=== PATIENT | male | born 1990 | race Caucasian/White ===

== ENCOUNTER 2017-03-13 14:50 | Emergency (ER) | payer BC ==
[2017-03-13 14:56] VITALS: BP 131/77
--- NOTE | 2017-03-13 15:33 | UC ---
Ear Complaint HPI - HPI Summary HPI Summary: TWO MONTHS OF INTERMITTENT EAR PAIN R>L. WORSENING OVER LAST WEEK WITH RIGHT SIDED LYMPH NODE TENDERNESS. NO DRAINAGE. - History of Current Complaint Chief Complaint: UCEar Stated Complaint: RIGHT EAR PAIN Time Seen by Provider: 03/13/17 14:51 Hx Obtained From: Patient Onset/Duration: Gradual Onset, Lasting Weeks, Worse Since - ONE WEEK Severity Initially: Mild Severity Currently: Moderate Pain Intensity: 3 Pain Scale Used: 0-10 Numeric Associated Signs/Symptoms: Positive: URI Symptoms - Allergies/Home Medications Allergies/Adverse Reactions: Allergies Allergy/AdvReac Type Severity Reaction Status Date / Time No Known Allergies Allergy Verified 03/13/17 14:56 PMH/Surg Hx/FS Hx/Imm Hx Previously Healthy: Yes - Surgical History Surgical History: Yes Surgery Procedure, Year, and Place: Tonsilectomy - Social History Alcohol Use: Weekly Substance Use Type: None Smoking Status (MU): Light Every Day Tobacco Smoker Type: Smokeless Tobacco Amount Used/How Often: 4 chews daily Cessation Counseling: Patient Advised to Stop - Immunization History Most Recent Influenza Vaccination: no Review of Systems Constitutional: Negative Skin: Negative Eyes: Negative ENT: Ear Ache Respiratory: Negative Cardiovascular: Negative Gastrointestinal: Negative Genitourinary: Negative Motor: Negative Neurovascular: Negative Musculoskeletal: Negative Neurological: Negative Psychological: Negative Is Patient Immunocompromised?: No All Other Systems Reviewed And Are Negative: Yes Physical Exam Triage Information Reviewed: Yes Appearance: Well-Appearing, Well-Nourished, Pain Distress - MILD Vital Signs: Initial Vital Signs Temp 98.4 F 03/13/17 14:52 Pulse 85 03/13/17 14:52 Resp 16 03/13/17 14:52 BP 131/77 03/13/17 14:52 Pulse Ox 100 03/13/17 14:52 Vital Signs Reviewed: Yes Eye Exam: Normal ENT: Positive: Hearing grossly normal, Pharynx normal, TM dull - BILATERAL, TM red - RIGHT Dental Exam: Normal Neck: Positive: Supple, Enlarged Nodes @ - RIGHT ANTERIOR CERVICAL LYMPHNODES Respiratory Exam: Normal Respiratory: Positive: Chest non-tender, Lungs clear, Normal breath sounds, No respiratory distress, No accessory muscle use Cardiovascular Exam: Normal Cardiovascular: Positive: RRR, No Murmur, Pulses Normal, Brisk Capillary Refill Abdominal Exam: Normal Musculoskeletal Exam: Normal Neurological Exam: Normal Psychological Exam: Normal Skin Exam: Normal Ear Complaint Course/Dx - Differential Dx/Diagnosis Differential Diagnosis/HQI/PQRI: Otitis Externa, Otitis Media, URI Provider Diagnoses: BILATERAL OTITIS SEROUS; RIGHT OTITIS MEDIA Discharge - Discharge Plan Condition: Stable Disposition: HOME Prescriptions: Amoxicillin/Clavulanate TAB* [Augmentin TAB 875*] 875 mg PO BID #20 tab Patient Education Materials: Otitis Media (ED), Serous Otitis Media (ED) Referrals: [facility] [Outside] No Primary Care Phys,NOPCP [Primary Care Provider] - Additional Instructions: PRIMARY CARE: There are four major types of clinical preventive care: immunizations, screening , behavioral counseling (sometimes referred to as lifestyle changes), and chemoprevention. All four apply throughout the life span. It is important to establish and to have access to a Primary Care Physician, not only for follow- up regrding acute and chronic problems, but also for preventative care.
== END 2017-03-13 15:16 | disposition home or self-care (01) ==
LOC: UCCORT 14:50
DX: H65.93 Unspecified nonsuppurative otitis media, bilateral (principal); H66.91 Otitis media, unspecified, right ear; F17.210 Nicotine dependence, cigarettes, uncomplicated
CPT/HCPCS: 99212; G0463

== ENCOUNTER 2017-05-16 11:21 | Emergency (ER) | payer BC ==
--- NOTE | 2017-05-16 12:00 | UC ---
Ear Complaint HPI - HPI Summary HPI Summary: He has had a few days of right ear pain. He has been using q tips and wax removal system. NO fever. there has also been right sided sore throat. - History of Current Complaint Stated Complaint: RIGHT EAR COMPLAINT Time Seen by Provider: 05/16/17 11:48 Hx Obtained From: Patient, Family/Decorating And [employer] Supervisor Onset/Duration: Gradual Onset, Still Present Severity Initially: Mild Severity Currently: Moderate Aggravating Factors: Nothing Alleviating Factors: Nothing Associated Signs/Symptoms: Positive: URI Symptoms. Negative: Discharge, Hearing Loss, Foreign Body Sensation, Trauma to Ear - Allergies/Home Medications Allergies/Adverse Reactions: Allergies Allergy/AdvReac Type Severity Reaction Status Date / Time No Known Allergies Allergy Verified 03/13/17 14:56 PMH/Surg Hx/FS Hx/Imm Hx Previously Healthy: No - right ear infection treated with amoxicllin about 1mo ago. - Surgical History Surgical History: Yes Surgery Procedure, Year, and Place: Tonsilectomy - Family History Known Family History: Positive: Other - no related ent history. - Social History Alcohol Use: Weekly Substance Use Type: None Smoking Status (MU): Light Every Day Tobacco Smoker Type: Smokeless Tobacco Amount Used/How Often: 4 chews daily - Immunization History Most Recent Influenza Vaccination: no Review of Systems ENT: Sore Throat, Ear Ache All Other Systems Reviewed And Are Negative: Yes Physical Exam Triage Information Reviewed: Yes Appearance: Well-Appearing, No Pain Distress, Well-Nourished Vital Signs Reviewed: Yes Eyes: Positive: Conjunctiva Clear ENT Exam: Other - Right tragal tenderness and right external canal swelling and discharge and tenderness with speculum. ENT: Positive: Pharynx normal, TMs normal, Uvula midline. Negative: Pharyngeal erythema, Nasal congestion, Nasal drainage, Tonsillar swelling, Tonsillar exudate, Trismus, Muffled voice, Hoarse voice, Dental tenderness, Sinus tenderness Neck: Positive: Supple, Nontender, No Lymphadenopathy Respiratory: Positive: No respiratory distress, No accessory muscle use. Negative: Respiratory distress Cardiovascular: Positive: Brisk Capillary Refill Abdomen Description: Negative: Distended Musculoskeletal: Positive: Strength Intact, ROM Intact, No Edema Neurological: Positive: Alert, Muscle Tone Normal. Negative: Fatigued Psychological: Positive: Normal Response To Family, Age Appropriate Behavior Skin: Negative: rashes Ear Complaint Course/Dx - Differential Dx/Diagnosis Provider Diagnoses: otitis externa right Discharge - Discharge Plan Condition: Good Disposition: HOME Prescriptions: Ciproflox/Dexameth OTIC.SUSP* [Ciprodex OTIC.SUSP*] 4 drop .SEE ORDER QID #1 btl Patient Education Materials: Otitis Externa (ED) Referrals: No Primary Care Phys,NOPCP [Primary Care Provider] - Additional Instructions: REturn here for any worsening of any kind.
[2017-05-16 12:11] VITALS: BP 124/82
== END 2017-05-16 12:15 | disposition home or self-care (01) ==
LOC: UCCORT 11:21
DX: H60.91 Unspecified otitis externa, right ear (principal); J02.9 Acute pharyngitis, unspecified; F17.220 Nicotine dependence, chewing tobacco, uncomplicated
CPT/HCPCS: 99212; G0463

== ENCOUNTER 2017-08-25 14:35 | Emergency (ER) | payer BC ==
[2017-08-25 14:47] VITALS: BP 144/74
[2017-08-25] MEDS ORDERED: methylPREDNISolone 125 MG* 2 ML VIAL IM ONE (14:54)
--- NOTE | 2017-08-25 15:05 | UC ---
Eye Complaint HPI - HPI Summary HPI Summary: patient has had pain in the tear duct of the left eye for a few days, was seen by his PCP who told him it was viral, seen again at work and given treatment for sinusitis. today the eye is swollen shut, clear tearing noted. - History of Current Complaint Chief Complaint: UCEye Stated Complaint: LEFT EYE COMPLAINT Hx Obtained From: Patient Onset/Duration: Sudden Onset, Lasting Days Timing: Constant Severity Initially: Moderate Severity Currently: Severe Pain Intensity: 9 Location of Injury: Eye Lid (lower), Eye Lid (upper), Periorbital Character: Throbbing Aggravating Factor(s): Nothing Alleviating Factor(s): Nothing Associated Signs And Symptoms: Positive: Drainage (Clear), Swelling - Allergies/Home Medications Allergies/Adverse Reactions: Allergies Allergy/AdvReac Type Severity Reaction Status Date / Time No Known Allergies Allergy Verified 08/25/17 14:47 PMH/Surg Hx/FS Hx/Imm Hx Previously Healthy: Yes - Surgical History Surgical History: Yes Surgery Procedure, Year, and Place: Tonsilectomy - Family History Known Family History: Positive: Cardiac Disease, Hypertension, Other - Social History Alcohol Use: Weekly Substance Use Type: None Smoking Status (MU): Light Every Day Tobacco Smoker Type: Smokeless Tobacco Amount Used/How Often: 4 chews daily - Immunization History Most Recent Influenza Vaccination: no Review of Systems Constitutional: Negative Skin: Negative Eyes: Drainage, Eye Redness, Other - swelling ENT: Negative Respiratory: Negative Cardiovascular: Negative Gastrointestinal: Negative Genitourinary: Negative Motor: Negative Neurovascular: Negative Musculoskeletal: Negative Neurological: Negative Psychological: Negative Is Patient Immunocompromised?: No All Other Systems Reviewed And Are Negative: Yes Physical Exam Triage Information Reviewed: Yes Appearance: Well-Appearing, Well-Nourished, Pain Distress Vital Signs: Initial Vital Signs Temp 99.0 F 08/25/17 14:40 Pulse 78 08/25/17 14:40 Resp 16 08/25/17 14:40 BP 144/74 08/25/17 14:40 Pulse Ox 98 08/25/17 14:40 Vital Signs Reviewed: Yes Eye Exam: Normal Eyes: Positive: Conjunctiva Inflamed, Discharge - tearing, large amount of swelling of the left lower and upper lid, Other: - neg chemosis, conjunctivitis, poptosis, swelling of the upper and lower lids severe and painful. no purulent drainage. ENT Exam: Normal ENT: Positive: Pharynx normal, Pharyngeal erythema, Nasal drainage, TMs normal Dental Exam: Normal Neck exam: Normal Neck: Positive: Supple, Nontender Respiratory Exam: Normal Respiratory: Positive: Chest non-tender, Lungs clear, Normal breath sounds Cardiovascular Exam: Normal Cardiovascular: Positive: RRR, No Murmur, Pulses Normal Abdominal Exam: Normal Abdomen Description: Positive: Nontender, No Organomegaly, Soft Bowel Sounds: Positive: Present Musculoskeletal Exam: Normal Musculoskeletal: Positive: Strength Intact, ROM Intact, No Edema Neurological Exam: Normal Neurological: Positive: Alert, Muscle Tone Normal Psychological Exam: Normal Skin Exam: Normal Eye Complaint Course/Dx - Course Course Of Treatment: hx obtained, exam performed ,meds reviewed, given prednisone for swelling and started on clindamycin, referred to [facility] for follow up. - Differential Dx/Diagnosis Differential Diagnosis/HQI/PQRI: Conjunctivitis, Periorbital Cellulitis, Orbital Cellulitis Provider Diagnoses: periorbital cellulitis of the left eye Discharge - Discharge Plan Condition: Stable Disposition: HOME Patient Education Materials: Periorbital Cellulitis in Adults (ED) Referrals: RAYMOND Aiken [Primary Care Provider] - Additional Instructions: 1. take the medication as prescribed. 2. warm compresses frequently. 3. follow up with Dr Toth's office on Sunday if there is no improvement. 4. If the pain increases or you develop a fever please follow up in the ER immediately
== END 2017-08-25 16:02 | disposition home or self-care (01) ==
LOC: UCCORT 14:35
DX: L03.213 Periorbital cellulitis (principal); F17.290 Nicotine dependence, other tobacco product, uncomplicated; F17.220 Nicotine dependence, chewing tobacco, uncomplicated
CPT/HCPCS: 96372; 99212; G0463; J2930